=== PATIENT | male | born 1960 | race Caucasian/White ===

== ENCOUNTER → 2017-11-05 | Outpatient (CLI) | payer OTHER ==
--- NOTE | ~2017-11-05 | EKG ---
[place] [address] [address] ELECTROCARDIOGRAM REPORT Name: PING ESTRADA Room #: [facility]#: [id number] Admission: 11/05/17 Attend Phys: Waylon Martinez MD, Discharge: Date of : 58 Report #: [id number] THIS REPORT FOR: //name// [facility] Test Date: 2017-11-05 Test Time: 16:37:36 Pat Name: PING ESTRADA Department: Room: Gender: [employer] Engineer: leonie : 1960 Requested By: Waylon Martinez Order Number: [id number] MD: Tim Rojas Measurements Intervals [place] Rate: 88 P: 41 WA: 150 QRS: -3 QRSD: 103 T: 24 QT: 374 QTc: 453 Interpretive Statements Sinus rhythm Poor R wave progression No previous ECG available for comparison Electronically Signed On 11-06-2017 13:19:36 CDT by Tim Rojas [email or web address] <ELECTRONICALLY SIGNED> By: Tim Rojas MD, [facility] 11/06/17 1319 1637 1637 Tim Rojas MD, FACC /EPI
== END ==
LOC: CV 15:56
DX: Z01.818 Encounter for other preprocedural examination (principal)